=== PATIENT | male | born 1985 | race Caucasian/White ===

== ENCOUNTER 2019-06-04 04:49 | Emergency (ER) | payer OTHER ==
[2019-06-04] MEDS ORDERED: LIDOCAINE 1% MPF 5 ML VIAL ONE (05:27)
--- NOTE | 2019-06-04 06:31 | ER ---
Nurse's Notes [facility] Name: Travon Joseph Age: 34 yrs Sex: Male : 1985 Arrival Date: 06/04/2019 Time: 04:50 Bed 5 Private MD: Diagnosis: Head injury. Laceration scalp. S/P fall Presentation: 06/03 05:00 Chief complaint: Patient states: got up to go to the bathroom this morning and lost his lp1 balance, hitting back of head on floor; Denies LOC; + ETOH; Denies any other injuries. Coronavirus screen: Proceed with normal triage. Ebola Screen: No symptoms or risks identified at this time. Mechanism of Injury: resulted from a fall, from a standing position. Initial Sepsis Screen: Does the patient meet any 2 criteria? No. Patient's initial sepsis screen is negative. Does the patient have a suspected source of infection? No. Patient's initial sepsis screen is negative. Risk Assessment: Do you want to hurt yourself or someone else? Patient reports no desire to harm self or others. Onset of symptoms was June 04, 2019 at 04:30. 05:00 Method Of Arrival: Wheelchair lp1 05:00 Acuity: DANIAL 3 lp1 Historical: - Allergies: 05:02 No Known Allergies; lp1 - Home Meds: 05:02 None [Active]; lp1 - PMHx: 05:02 None; lp1 - PSHx: 05:02 None; lp1 - Immunization history:: Adult Immunizations up to date, Last tetanus immunization: up to date. - Social history:: Smoking status: Patient denies any tobacco usage or history of. Screenin:02 Abuse screen: Denies threats or abuse. Denies injuries from another. Nutritional lp1 screening: No deficits noted. Tuberculosis screening: No symptoms or risk factors identified. Assessment: 05:15 General: Appears in no apparent distress. Behavior is calm, cooperative, appropriate ea for age. Pain: Complains of pain in right parietal area. Neuro: Level of Consciousness is awake, alert, obeys commands, Oriented to person, place, time, situation. Cardiovascular: Patient's skin is warm and dry. Respiratory: Airway is patent Respiratory effort is even, unlabored, Respiratory pattern is regular, symmetrical. Derm: Skin is pink, warm \T\ dry. 06:19 Reassessment: Patient and/or family updated on plan of care and expected duration. Pain ea level reassessed. Patient is alert, oriented x 3, equal unlabored respirations, skin warm/dry/pink. Awaiting on CT results. 06:36 Reassessment:. sg 06:42 Reassessment: Patient and/or family updated on plan of care and expected duration. Pain ea level reassessed. Patient is alert, oriented x 3, equal unlabored respirations, skin warm/dry/pink. Discharge instruction given to patient, verbalized the understanding of instruction. Pt left ED ambulatory tolerating well. Vital Signs: 05:00 BP 129 / 91; Pulse 57; Resp 16; Temp 97.4(TE); Pulse Ox 99% on R/A; Weight 72.57 kg; lp1 Height 5 ft. 11 in. (180.34 cm); Pain 0/10; 06:15 BP 122 / 88; Pulse 58; Resp 18; Pulse Ox 100% ; ea 05:00 Body Mass Index 22.32 (72.57 kg, 180.34 cm) lp1 [place] Coma Score: 05:00 Eye Response: spontaneous(4). Verbal Response: oriented(5). Motor Response: obeys lp1 commands(6). Total: 15. 05:12 Eye Response: spontaneous(4). Verbal Response: oriented(5). Motor Response: obeys pkl commands(6). Total: 15. ED Course: 04:50 Patient arrived in ED. ds1 04:53 Ferdinand Shay MD is Attending Physician. pkl 05:01 Triage completed. lp1 05:02 Arm band placed on right wrist. lp1 05:03 Patient has correct armband on for positive identification. lp1 05:29 Pau Sewell, HERMINIA is Primary Nurse. ea 05:30 Assist provider with laceration repair on right parietal area that was between 2.6 to ea 7.5 cm using sutures. Set up tray. Performed by Ferdinand Shay MD Patient tolerated well. 06:15 CT Head Brain wo Cont In Process Unspecified. EDMS 06:43 Patient did not have IV access during this emergency room visit. ea Administered Medications: 05:31 Drug: Lidocaine (1 %) 1 amp {Note: administered by provider.} Volume: 5 ml; Route: ea Infiltration; Outcome: 06:30 Discharge ordered by . dinesh 06:43 Discharged to home ambulatory. jessica 06:43 Condition: stable 06:43 Discharge instructions given to patient, Instructed on discharge instructions, follow up and referral plans. Demonstrated understanding of instructions. 06:45 Patient left the ED. jessica Signatures: Dispatcher [employer] EDPresley Noland, RN Ferdinand Velez MD MD pkl [place], Demi ds1 Therese Gonzalez RN RN lp1 Pau eSwell RN RN ea
--- NOTE | 2019-06-04 06:31 | EDPHYS ---
Physician Documentation [facility] Name: Travon Joseph Age: 34 yrs Sex: Male : 1985 Arrival Date: 06/04/2019 Time: 04:50 Bed 5 Private MD: ED Physician Ferdinand Shay HPI: 06/03 05:12 This 34 yrs old Male presents to ER via Wheelchair with complaints of Head pkl Injury-Adult, Fall Injury. 05:12 The patient or guardian reports injury. The complaints affect the occipital scalp. pkl Context of injury: resulted from a fall, slipped. Onset: The symptoms/episode began/occurred just prior to arrival. Associated signs and symptoms: Loss of consciousness: This patient did not experience any loss of consciousness. Historical: - Allergies: 05:02 No Known Allergies; lp1 - Home Meds: 05:02 None [Active]; lp1 - PMHx: 05:02 None; lp1 - PSHx: 05:02 None; lp1 - Immunization history:: Adult Immunizations up to date, Last tetanus immunization: up to date. - Social history:: Smoking status: Patient denies any tobacco usage or history of. ROS: 05:12 Eyes: Negative for injury, pain, redness, and discharge, ENT: Negative for injury, pkl pain, and discharge, Neck: Negative for injury, pain, and swelling, Cardiovascular: Negative for chest pain, palpitations, and edema, Respiratory: Negative for shortness of breath, cough, wheezing, and pleuritic chest pain, Abdomen/GI: Negative for abdominal pain, nausea, vomiting, diarrhea, and constipation, Back: Negative for injury and pain, : Negative for injury, bleeding, discharge, and swelling, MS/Extremity: Negative for injury and deformity. 05:12 Skin: Positive for laceration(s), of the occipital scalp. 05:12 Neuro: Negative for loss of consciousness. Exam: 05:12 Eyes: Pupils equal round and reactive to light, extra-ocular motions intact. Lids and pkl lashes normal. Conjunctiva and sclera are non-icteric and not injected. Cornea within normal limits. Periorbital areas with no swelling, redness, or edema. 05:12 Head/face: Noted is a laceration(s), that is linear, 2.5 cm(s), of the occipital scalp. 05:12 ENT: Exam is negative for acute changes. 05:12 Neck: Exam negative for obvious evidence of injury or deformity, nuchal rigidity. 05:12 Chest/axilla: Exam negative for acute changes. 05:12 Cardiovascular: Rate: normal, Rhythm: regular. 05:12 Respiratory: the patient does not display signs of respiratory distress, Respirations: normal, Breath sounds: are clear throughout. 05:12 Abdomen/GI: Exam negative for acute changes. 05:12 Back: Exam negative for acute changes. 05:12 : Exam negative for acute changes. 05:12 Musculoskeletal/extremity: Exam is negative for acute changes. 05:12 Neuro: Orientation: is normal, Mentation: is normal, Cranial nerves: grossly normal, Cerebellar function: is grossly normal, Motor: is normal, Gait: is steady. Vital Signs: 05:00 BP 129 / 91; Pulse 57; Resp 16; Temp 97.4(TE); Pulse Ox 99% on R/A; Weight 72.57 kg; lp1 Height 5 ft. 11 in. (180.34 cm); Pain 0/10; 06:15 BP 122 / 88; Pulse 58; Resp 18; Pulse Ox 100% ; ea 05:00 Body Mass Index 22.32 (72.57 kg, 180.34 cm) lp1 [place] Coma Score: 05:00 Eye Response: spontaneous(4). Verbal Response: oriented(5). Motor Response: obeys lp1 commands(6). Total: 15. 05:12 Eye Response: spontaneous(4). Verbal Response: oriented(5). Motor Response: obeys pkl commands(6). Total: 15. Laceration: 05:52 Wound Repair of 2cm ( 0.8in ) subcutaneous laceration to occipital scalp. Minimal pkl bleeding noted.. Distal neuro/vascular/tendon intact. Anesthesia: Local anesthetic administered with 1% lidocaine. Wound prep: Extensive cleansing by me, Wound irrigation with saline. Skin closed with 3 4-0 Prolene using simple sutures and sterile technique. Dressed with Neosporin. Patient tolerated well. MDM: 04:54 Patient medically screened. pkl 05:52 Data reviewed: vital signs, nurses notes. pkl 06:25 ED course: Patient feeling better. Notified CT Scan result. Advised to follow up with pkl PCP in 1 week for wound check and suture removal. Patient understood instruction. 06/03 05:09 Order name: CT Head Brain wo Cont pkl 06/03 05:31 Order name: Suture Tray Setup; Complete Time: 05:31 ea 06/03 05:31 Order name: Wound Care; Complete Time: 05:30 ea Administered Medications: 05:31 Drug: Lidocaine (1 %) 1 amp {Note: administered by provider.} Volume: 5 ml; Route: ea Infiltration; Disposition: 06/04/19 06:30 Discharged to Home. Impression: Head injury. Laceration scalp. S/P fall. - Condition is Stable. - Work release form, Medication Reconciliation Form, Thank You Letter, Antibiotic Education, Prescription Opioid Use form. - Follow up: Private Physician; When: 1 week; Reason: Wound Recheck, Staple/Suture removal, Re-evaluation by your physician. - Problem is new. - Symptoms have improved. Signatures: Dispatcher [employer] EDMS Ferdinand Shay MD MD pkTherese Rosales RN RN lp1 Pau Sewell RN RN ea Corrections: (The following items were deleted from the chart) 06:45 06:30 06/04/2019 06:30 Discharged to Home. Impression: Head injury. Laceration scalp. ea S/P fall. Condition is Stable. Forms are Medication Reconciliation Form, Thank You Letter, Antibiotic Education, Prescription Opioid Use. Follow up: Private Physician; When: 1 week; Reason: Wound Recheck, Staple/Suture removal, Re-evaluation by your physician. Problem is new. Symptoms have improved. pkl
[2019-06-04 06:51] VITALS: TEMP 97.4
[2019-06-04 06:52] VITALS: BP 122/88; O2SAT 100
--- NOTE | 2019-06-04 10:55 | RAD REPORT ---
EXAM DESCRIPTION: CT - Head Brain Wo Cont - 06/04/2019 6:30 am CLINICAL HISTORY: The patient is 34 years old and is Male; fall pain TECHNIQUE: Axial computed tomography images of the head/brain without intravenous contrast. Sagittal and cor onal reformatted images were created and reviewed. This CT exam was performed using one or more of the following dose reduction techniques: automated exposure control, adjustment of the mA and/or kV according to patient size, and/or use of iterative reconstruction technique. COMPARISON: No relevant prior studies available. FINDINGS: BRAIN: Unremarkable. The nation-white matter differentiation is preserved . No hemorrhage. No s ignificant white matter disease. No edema. No extra-axial fluid collections. VENTRICLES: Unremarkable. No ventriculomegaly. BONES/JOINTS: No acute fracture. SOFT TISSUES: Unremarkable. SINUSES: Unremarkable as visualized. No acute sinusitis. MASTOID AIR CELLS: Unremarkable as visualized. No mastoid effusion. ORBITS: Unremarkable as visualized. IMPRESSION: No acute intracranial findings. Electronically signed by: Shasta Greene MD 06/04/2019 6:20 AM CDT Due to temporary technical issues with the PACS/Fluency reporting system, reports are being signed by the in house radiologist as a courtesy to ensure prompt reporting. The interpreting radiologist is f ully responsible for the content of the report.
== END 2019-06-04 06:45 | disposition home or self-care (01) ==
LOC: ER 04:49
PROC: 0JQ00ZZ Repair Scalp Subcutaneous Tissue and Fascia, Open Approach (ICD-10-PCS; principal; 2019-06-04)
DX: S01.01XA Laceration without foreign body of scalp, initial encounter (principal); W01.0XXA Fall on same level from slipping, tripping and stumbling without subsequent striking against object, initial encounter; Y93.9 Activity, unspecified; Y92.9 Unspecified place or not applicable
CPT/HCPCS: 70450; 99283

== ENCOUNTER 2023-11-14 23:53 | Emergency (ER) | payer OTHER ==
--- OUTSIDE RECORDS SUMMARY | 2023-11-14 23:57 | XMS REPORT | Continuity of Care Document ---
Author Name Unknown Address [address] [place] [address] [facility] Address [address] [place] [address] Care Team Providers Care Tool Machine Setup Operator Name Role Phone PCP, PATIENT DOES NOT HAVE A Primary Care Physic trixie Unavailable Lab, Adc Fam Pob I Attending Clinician Unavailab Rachna Russell Attending Clinician RACHNA MORRIS Attending Clinician Unavailable Doctor Unassigned, [place] Attending Clinician U navailable Payers Payer Name Policy Type Policy Number Effective Date Expirati on Date Source Allergies, Adverse Reactions, Alerts Allergy Name Allergy Type Status Severity Reaction(s) Onset Date Inactive Date Treating Clinician Comments Source NO KNOWN ALLERGIE S Drug Class Active [facility] Social History Social Habit Start Date Stop Date Quantity Comments Source Sex Assigned At [facility] Smoking Status Start Date Stop Date Source Unknown if ever smoked [facility] Encounters Start Date/Time End Date/Time Encounter Type Admission Type Attending Clinicians Care Facility Care Department Encounter ID Source 2023-08-09 19:00:00 2023-08-09 19:00:00 Outpatient R [facility] [id number] [facility] 2020-02-20 08:03:00 2020-02-20 08:23:00 Laboratory Only Lab, Adc Fam Pob I Rachna Morris [facility] [address] [id number] [facility] 2020-02-20 08:00:00 2020-02-20 08:00:00 Outpatient RACHNA PUGH [facility] [id number] [facility] 2020-02-20 00:00:00 2020-02-20 00:00:00 Letter (Out) Doctor Unassigned, [place] [facility] [id number] [facility]
[2023-11-15] MEDS ORDERED: TDAP (DIPHTH,PERTUSS(ACELL),TET VAC) 0.5 ML VIAL IMVAC ONE (00:21)
--- NOTE | 2023-11-15 00:26 | ER ---
Nurse's Notes [facility] Name: Travon Joseph Age: 38 yrs Sex: Male : 1985 Arrival Date: 11/14/2023 Time: 23:53 Bed 15 Private MD: Diagnosis: Puncture wound without foreign body of foot Presentation: 11/14 00:08 Chief complaint: Patient states: Stepped on a nail 20 minutes ago, R foot. DEnies pain. ss Is not UTD with tetanus vaccine. Coronavirus screen: Client denies travel out of the [place] in the last 14 days. Ebola Screen: Patient denies exposure to infectious person. Patient denies travel to an Ebola-affected area in the 21 days before illness onset. Initial Sepsis Screen: Does the patient meet any 2 criteria? No. Patient's initial sepsis screen is negative. Does the patient have a suspected source of infection? No. Patient's initial sepsis screen is negative. Risk Assessment: Do you want to hurt yourself or someone else? Patient reports no desire to harm self or others. Onset of symptoms was November 15, 2023. 00:08 Method Of Arrival: Ambulatory ss 00:08 Acuity: DANIAL 5 ss Historical: - Allergies: 00:10 No Known Allergies; ss - Home Meds: 00:10 None [Active]; ss - PMHx: 00:10 None; ss - PSHx: 00:10 None; ss - Immunization history:: Client reports having NOT received the Covid vaccine. - Infectious Disease History:: Denies. - Social history:: Smoking status: Patient reports use of chewing tobacco. Screenin:17 [facility] ED Fall Risk Assessment (Adult) History of falling in the last 3 months, rg5 including since admission No falls in past 3 months (0 pts) Confusion or Disorientation No (0 pts) Intoxicated or Sedated No (0 pts) Impaired Gait No (0 pts) Mobility Assist Device Used No (0 pt) Altered Elimination No (0 pt) Score/Fall Risk Level 0 - 2 = Low Risk Oriented to surroundings, Maintained a safe environment, Hourly rounding (assess needs \T\ fall precautionary measures) done. Abuse screen: Denies threats or abuse. Nutritional screening: No deficits noted. Tuberculosis screening: No symptoms or risk factors identified. Assessment: 00:15 General: Appears in no apparent distress. comfortable, Behavior is calm, cooperative, rg5 appropriate for age. Pain: Denies pain. Neuro: Level of Consciousness is awake, alert, obeys commands, Oriented to person, place, time. Cardiovascular: Denies chest pain, shortness of breath. Respiratory: Airway is patent Trachea midline Respiratory effort is even, unlabored, Respiratory pattern is regular, symmetrical. GI: Abdomen is round non-distended. : No signs and/or symptoms were reported regarding the genitourinary system. EENT: No signs and/or symptoms were reported regarding the EENT system. Derm: Skin is intact, Skin is dry, Skin is normal, Skin temperature is warm. Musculoskeletal: Circulation, motion, and sensation intact. Range of motion: intact in all extremities. Vital Signs: 00:08 BP 136 / 94; Pulse 95; Resp 16; Temp 98.1(O); Pulse Ox 96% on R/A; Weight 77.11 kg; ss Height 5 ft. 11 in. ; Pain 0/10; 00:17 BP 136 / 94; Pulse 95; Resp 16; Temp 98.1; Pulse Ox 96% on R/A; Pain 0/10; rg5 00:08 Body Mass Index 23.71 (77.11 kg, 180.34 cm) ss 00:08 Pain Scale: Adult ss 00:17 Pain Scale: Adult rg5 [place] Coma Score: 00:17 Eye Response: spontaneous(4). Motor Response: obeys commands(6). Verbal Response: rg5 oriented(5). Total: 15. ED Course: 11/13 23:59 Patient arrived in ED. gm2 11/14 00:00 Clarita Garcia FNP-C [facility] kb 00:00 Gary Rodriguez MD is Attending Physician. kb 00:09 Garry Cortes RN is Primary Nurse. rg5 00:10 Triage completed. ss 00:10 Arm band placed on left wrist. ss 00:10 Patient has correct armband on for positive identification. Bed in low position. Call rg5 light in reach. Side rails up X 1. Door closed. Warm blanket given. Pillow given. 00:19 No provider procedures requiring assistance completed. Patient did not have IV access rg5 during this emergency room visit. 00:36 Provided Education on: POST ER CARE. rg5 Administered Medications: 00:21 Drug: Boostrix Tdap IM 0.5 ml IM once; as a single dose Route: IM; Site: left deltoid; rg5 00:29 Follow up: Response: No adverse reaction rg5 Medication: 00:17 VIS not applicable for this client. rg5 Outcome: 00:25 Discharge ordered by MD. ennis 00:35 Discharged to home ambulatory, rg5 00:35 Condition: stable 00:35 Discharge instructions given to patient, 00:36 Patient left the ED. rg5 Signatures: Clarita Garcia, GUIDE ESCORT-C GUIDE ESCORT-Lalita Wong, RN RN Chelle Soria 2 Garry Cortes, HERMINIA RN rg5
--- NOTE | 2023-11-15 00:26 | EDPHYS ---
Physician Documentation [facility] Name: Travon Joseph Age: 38 yrs Sex: Male : 1985 Arrival Date: 11/14/2023 Time: 23:53 Bed 15 Private MD: ED Physician Gary Rodriguez HPI: 11/14 00:28 This 38 yrs old Male presents to ER via Ambulatory with complaints of Stepped on nail. kb 00:28 Pt is a 38 year old male who was walking to his truck and stepped on a nail just group captain. kb States he came in for a tetanus shot because he hasn't had one since at least 2012. . Historical: - Allergies: 00:10 No Known Allergies; ss - Home Meds: 00:10 None [Active]; ss - PMHx: 00:10 None; ss - PSHx: 00:10 None; ss - Immunization history:: Client reports having NOT received the Covid vaccine. - Infectious Disease History:: Denies. - Social history:: Smoking status: Patient reports use of chewing tobacco. ROS: 00:27 Constitutional: As per HPI kb Exam: 00:27 Constitutional: This is a well developed, well nourished patient who is awake, alert, kb and in no acute distress. Head/Face: Normocephalic, atraumatic. ENT: Moist Mucous membranes Cardiovascular: Regular rate Respiratory: Respirations even and unlabored. No increased work of breathing. Talking in full sentences MS/ Extremity: Pulses equal, no cyanosis. Neurovascular intact. Full, normal range of motion. Neuro: Awake and alert, GCS 15, oriented to person, place, time, and situation. Moves all extremities. Normal gait. 00:27 Skin: injury, puncture(s), that are superficial, of the arch of right foot, Vital Signs: 00:08 BP 136 / 94; Pulse 95; Resp 16; Temp 98.1(O); Pulse Ox 96% on R/A; Weight 77.11 kg; ss Height 5 ft. 11 in. ; Pain 0/10; 00:17 BP 136 / 94; Pulse 95; Resp 16; Temp 98.1; Pulse Ox 96% on R/A; Pain 0/10; rg5 00:08 Body Mass Index 23.71 (77.11 kg, 180.34 cm) ss 00:08 Pain Scale: Adult ss 00:17 Pain Scale: Adult rg5 [place] Coma Score: 00:17 Eye Response: spontaneous(4). Motor Response: obeys commands(6). Verbal Response: rg5 oriented(5). Total: 15. MDM: 00:00 Patient medically screened. kb 00:27 Differential diagnosis: puncture, FB, cellulitis, abscess. Data reviewed: vital signs, kb nurses notes. Test considered but Not performed: X-ray: xray considered but pt reports nail was intact after it was pulled out of foot. Counseling: I had a detailed discussion with the patient and/or guardian regarding the historical points, exam findings, and any diagnostic results supporting the discharge/admit diagnosis, the need for outpatient follow up, a family practitioner, to return to the emergency department if symptoms worsen or persist or if there are any questions or concerns that arise at home. Administered Medications: 00:21 Drug: Boostrix Tdap IM 0.5 ml IM once; as a single dose Route: IM; Site: left deltoid; rg5 00:29 Follow up: Response: No adverse reaction rg5 Disposition Summary: 11/15/23 00:25 Discharge Ordered Notes: Location: Home kb Condition: Stable kb Diagnosis - Puncture wound without foreign body of foot kb Followup: kb - With: Emergency Department - When: As needed - Reason: Worsening of condition Followup: kb - With: Private Physician - When: 2 - 3 days - Reason: Recheck today's complaints, Continuance of care, Re-evaluation by your physician Discharge Instructions: - Discharge Summary Sheet kb - Puncture Wound, [id number] kb Forms: - Medication Reconciliation Form kb - Antibiotic Education kb - Prescription Opioid Use kb - Patient Portal Instructions kb - Leadership Thank You Letter kb - Work release form sp3 Signatures: Clarita Garcia FNP-C FNP-Lalita Wong, RN RN Garry Cortes RN RN rg5
[2023-11-15 00:48] VITALS: BP 136/94; TEMP 98.1; O2SAT 96
== END 2023-11-15 00:36 | disposition home or self-care (01) ==
LOC: ER 23:53
DX: S91.331A Puncture wound without foreign body, right foot, initial encounter (principal); F17.220 Nicotine dependence, chewing tobacco, uncomplicated
CPT/HCPCS: 96372; 99284